=== PATIENT | female | born 1945 | race Caucasian/White ===

== ENCOUNTER 2019-09-03 13:33 | Emergency (ER) | payer MEDICARE, OTHER ==
[~2019-09-03] VITALS: Ht 160 cm; Wt 64.4 kg
[2019-09-03 14:19] LABS: BASOPHILS ABSOLUTE AUTO 0.05 K/mm3 (0.00-0.23); BASOPHILS PERCENT AUTO 1 % (0-2); EOSINOPHILS ABSOLUTE AUTO 0.16 K/mm3 (0.00-0.68); EOSINOPHILS PERCENT AUTO 2 % (0-6); Hematocrit 44.3 % (33.0-51.0); Hemoglobin 14.2 g/dL (11.5-16.0); IMMATURE GRAN ABSOLUTE AUTO 0.02 K/mm3 (0.00-0.10); IMMATURE GRAN PERCENT AUTO 0 % (0-1); LYMPHOCYTES PERCENT AUTO 27 % (21-46); MONOCYTES ABSOLUTE AUTO 0.74 K/mm3 (0.16-1.47); MONOCYTES PERCENT AUTO 9 % (4-13); Mean Corpuscular HGB 29.3 pg (26.0-34.0); Mean Corpuscular HGB Conc 32.1 g/dL (31.5-36.5); Mean Corpuscular Volume 91 fL (80-100); Mean Platelet Volume 9.5 fL (9.1-12.4); NEUTROPHILS ABSOLUTE AUTO 4.85 K/mm3 (1.96-9.15); NEUTROPHILS PERCENT AUTO 61 % (41-73); Platelet Count 292 K/mm3 (150-400); RDW Coefficient Variation 13.1 % (11.7-14.2); RDW Standard Deviation 44.6 fL (35.1-46.3); Red Blood Cell Count 4.85 M/mm3 (3.80-5.20); White Blood Cell Count 8.02 K/mm3 (4.00-11.30)
[2019-09-03 14:38] LABS: Bilirubin, Total 0.4 mg/dL (0.1-1.0); Calcium, Blood 9.6 mg/dL (8.5-10.1); Creatinine, Blood 1.09 mg/dL (0.40-1.00); Potassium, Blood 4.4 mmol/L (3.5-5.5)
[2019-09-03] MEDS ORDERED: Buspirone HCl7.5 MG PO (14:44)
[2019-09-03] MEDS ORDERED: Lisinopril2.5 MG (14:44)
[2019-09-03] MEDS ORDERED: TRAZ50 (14:44)
[2019-09-03] MEDS ORDERED: Paxil20 MG PO (14:45)
[2019-09-03] MEDS ORDERED: LORATADINE10 M1 PO (14:45)
[2019-09-03] MEDS ORDERED: AMLODIPINE BESY10 MG PO (14:45)
[2019-09-03] MEDS ORDERED: ATORVASTATIN CA40 M1 PO (14:45)
== END 2019-09-03 16:35 | disposition home or self-care (01) ==
LOC: ER 13:33
PROVIDERS: Physician Assistant
DX: F41.9 Anxiety disorder, unspecified (principal); R07.9 Chest pain, unspecified; R51 Headache; R20.2 Paresthesia of skin; Z88.6 Allergy status to analgesic agent; Z91.030 Bee allergy status
CPT/HCPCS: 36415; 70450; 80053; 84484; 85025; 93005; 93010; J1885; J2060; J2405

== ENCOUNTER 2019-11-21 11:43 | Emergency (ER) | payer MEDICARE, OTHER ==
[~2019-11-21] VITALS: Ht 167.6 cm; Wt 67.6 kg
[~2019-11-21 11:43] MED LIST: AMLODIPINE BESY10 MG PO; ATORVASTATIN CA40 M1 PO; Buspirone HCl7.5 MG PO; LORATADINE10 M1 PO; Lisinopril2.5 MG; Paxil20 MG PO; TRAZ50
[2019-11-21] MEDS ORDERED: AMLO10 PO (12:32)
[2019-11-21] MEDS ORDERED: C Complex1000 MG PO (12:32)
[2019-11-21] MEDS ORDERED: Calcium 600 MG1 EACH PO (12:33)
[2019-11-21] MEDS ORDERED: ATOR20 PO (12:33)
[2019-11-21] MEDS ORDERED: VITAMIN D350 MC1 PO (12:34)
[2019-11-21] MEDS ORDERED: CENTRUM SILVER1 EAC2 PO (12:34)
[2019-11-21] MEDS ORDERED: LISI20 PO (12:34)
[2019-11-21] MEDS ORDERED: Loratadine10 MG PO (12:35)
[2019-11-21] MEDS ORDERED: TRAZ50 PO (12:35)
[2019-11-21] MEDS ORDERED: OMEP20ER PO (12:35)
[2019-11-21] MEDS ORDERED: MECL25 PO (12:35)
[2019-11-21] MEDS ORDERED: Norco 5-325 Ta1 EACH PO (13:01)
== END 2019-11-21 13:33 | disposition home or self-care (01) ==
LOC: ER 11:43
DX: S63.501A Unspecified sprain of right wrist, initial encounter (principal); S63.91XA Sprain of unspecified part of right wrist and hand, initial encounter; I10 Essential (primary) hypertension; F32.9 Major depressive disorder, single episode, unspecified; Z91.030 Bee allergy status; Z88.6 Allergy status to analgesic agent; Z79.899 Other long term (current) drug therapy; W18.30XA Fall on same level, unspecified, initial encounter
CPT/HCPCS: 73110; 73120; 99283-25; A9270-GY

== ENCOUNTER → 2020-02-16 | Outpatient (CLI) | payer MEDICARE, OTHER ==
[~2020-02-16] MED LIST changes: +AMLO10 PO; +ATOR20 PO; +C Complex1000 MG PO; +CENTRUM SILVER1 EAC2 PO; +CITA20 PO; +Calcium 600 MG1 EACH PO; +LISI20 PO; +Loratadine10 MG PO; +MECL25 PO; +Norco 5-325 Ta1 EACH PO; +OMEP20ER PO; +PARO20 PO; +TRAZ50 PO; +VITAMIN D350 MC1 PO
== END ==
LOC: LAB SHORT 12:31 → PLD 12:31
DX: B35.1 Tinea unguium (principal)
CPT/HCPCS: 88305; 88312

== ENCOUNTER 2020-03-14 09:47 | Day surgery (SDC) | payer MEDICARE, OTHER ==
[~2020-03-14] VITALS: Ht 160 cm; Wt 65.0 kg
[~2020-03-14 09:47] MED LIST changes: +TRAM50 PO; +TRAZ100 PO
--- NOTE | 2020-03-14 16:22 | NUR ---
1620 PATIENT UP TO THE RESTROOM. ONLY WALKED 5 FEET WITH MUCH ENCOURAGEMENT BY CAREGIVER AND STAFF. C/O PAIN TO THE RIGHT FOOT. STATES "THE MEDICATIONS YOU GAVE ME EARLIER DID NOT HELP. MY PAIN IS STILL THERE." EXPLAINED TO PATIENT THAT THE LIDOCAINE HAS WORN OFF THE INSERTION SITE AND THAT IT WILL BE TENDER AND SORE. THE RENEWED BOLLD FLOW TO THE RIGHT LOWER LEG WILL HELP WITH THE WALKING PAIN. REMINDED THE PATIENT OF THE WALKING PROGRAM HER AND DR. DUPONT DISCUSSED AND THAT IT WILL BE WORK ON HER PART AND SHE MAY EXPERIENCE SOME PAIN, BUT THE MORE SHE WALKS THE BETTER SHE WILL FEEL. CAREGIVER GAVE ENCOURAGMENT ALSO AND WE CONGRAGULATED HER ON PROGRESS TODAY.
--- NOTE | 2020-03-14 16:50 | NUR ---
1650 PATIENT DISCHARGED HOME AFTER DRESSING. PIV DISCONTINUED. DISCHARGE INSTRUCTIONS AND ALL BELONGINGS RETAINED BY PATIENT. ESCORTED VIA WHEELCHAIR TO THE CAR. DISCHARGED HOME.
== END 2020-03-14 16:50 | disposition home or self-care (01) ==
LOC: MHTC 09:47
DX: I70.211 Atherosclerosis of native arteries of extremities with intermittent claudication, right leg (principal); I10 Essential (primary) hypertension; E03.9 Hypothyroidism, unspecified; Z86.73 Personal history of transient ischemic attack (TIA), and cerebral infarction without residual deficits; Z88.6 Allergy status to analgesic agent; Z79.899 Other long term (current) drug therapy
CPT/HCPCS: 76937; 99152; 99153; A9270-GY; C1725; C1757; C1760; C1769; C1887; C1894; C2623; J1644; J2250; J3010; J7030; J7040; J7050; Q9967

== ENCOUNTER 2020-03-20 22:21 | Emergency (ER) | payer MEDICARE, OTHER ==
[~2020-03-20] VITALS: Ht 165.1 cm; Wt 65.8 kg
[2020-03-20 22:56] LABS: BASOPHILS ABSOLUTE AUTO 0.05 K/mm3 (0.00-0.23); BASOPHILS PERCENT AUTO 1 % (0-2); EOSINOPHILS ABSOLUTE AUTO 0.15 K/mm3 (0.00-0.68); EOSINOPHILS PERCENT AUTO 2 % (0-6); Hematocrit 39.5 % (33.0-51.0); Hemoglobin 12.6 g/dL (11.5-16.0); IMMATURE GRAN ABSOLUTE AUTO 0.02 K/mm3 (0.00-0.10); IMMATURE GRAN PERCENT AUTO 0 % (0-1); LYMPHOCYTES ABSOLUTE AUTO 3.09 K/mm3 (0.84-5.20); LYMPHOCYTES PERCENT AUTO 31 % (21-46); MONOCYTES ABSOLUTE AUTO 0.86 K/mm3 (0.16-1.47); MONOCYTES PERCENT AUTO 9 % (4-13); Mean Corpuscular HGB 29.8 pg (26.0-34.0); Mean Corpuscular HGB Conc 31.9 g/dL (31.5-36.5); Mean Corpuscular Volume 93 fL (80-100); Mean Platelet Volume 9.5 fL (9.1-12.4); NEUTROPHILS PERCENT AUTO 58 % (41-73); Platelet Count 307 K/mm3 (150-400); RDW Coefficient Variation 13.9 % (11.7-14.2); RDW Standard Deviation 47.8 fL (35.1-46.3); Red Blood Cell Count 4.23 M/mm3 (3.80-5.20); White Blood Cell Count 9.87 K/mm3 (4.00-11.30)
[2020-03-20] MEDS ORDERED: AMLODIPINE BESY10 MG PO (23:04)
[2020-03-20] MEDS ORDERED: ZESTRIL40 M2 PO (23:07)
[2020-03-20] MEDS ORDERED: Buspirone HCl7.5 MG PO (23:09)
[2020-03-20] MEDS ORDERED: OMEP20ER PO (23:10)
[2020-03-20] MEDS ORDERED: Loratadine10 MG PO (23:10)
[2020-03-20] MEDS ORDERED: CYCL10 PO (23:10)
[2020-03-20 23:14] LABS: Albumin, Blood 4.1 g/dL (3.4-5.0); Bilirubin, Total 0.5 mg/dL (0.1-1.0); Bun/Creatinine Ratio 22.3 (12.0-20.0); Creatinine, Blood 1.12 mg/dL (0.40-1.00); Potassium, Blood 3.9 mmol/L (3.5-5.5); Total Protein, Blood 8.1 g/dL (6.4-8.2)
[2020-03-20 23:20] LABS: International Normalized Ratio 0.91; Prothrombin Time Results 9.8 Sec (9.7-11.5)
== END 2020-03-21 00:32 | disposition home or self-care (01) ==
LOC: ER 22:21
PROVIDERS: Emergency Medicine
DX: G93.40 Encephalopathy, unspecified (principal); F10.129 Alcohol abuse with intoxication, unspecified; Y90.6 Blood alcohol level of 120-199 mg/100 ml; Z88.6 Allergy status to analgesic agent; Z91.030 Bee allergy status; Z79.899 Other long term (current) drug therapy; I10 Essential (primary) hypertension; Z86.73 Personal history of transient ischemic attack (TIA), and cerebral infarction without residual deficits; F32.9 Major depressive disorder, single episode, unspecified; G62.9 Polyneuropathy, unspecified; I25.2 Old myocardial infarction
CPT/HCPCS: 51702; 70450; 70496; 70498; 80053; 85025; 85610; 93005; 93010; 99285-25; G0480; Q9967

== ENCOUNTER 2020-08-15 09:54 | Emergency (ER) | payer MEDICARE, OTHER ==
[~2020-08-15] VITALS: Ht 160 cm; Wt 61.7 kg
[~2020-08-15 09:54] MED LIST changes: +CYCL10 PO; +ZESTRIL40 M2 PO
== END 2020-08-15 12:09 | disposition home or self-care (01) ==
LOC: ER 09:54
DX: S09.90XA Unspecified injury of head, initial encounter (principal); I10 Essential (primary) hypertension; I25.2 Old myocardial infarction; Z79.899 Other long term (current) drug therapy; Z91.030 Bee allergy status; Z86.73 Personal history of transient ischemic attack (TIA), and cerebral infarction without residual deficits; Z79.82 Long term (current) use of aspirin; Z91.013 Allergy to seafood; W22.8XXA Striking against or struck by other objects, initial encounter; Y93.89 Activity, other specified
CPT/HCPCS: 70450; 99284-25

== ENCOUNTER 2020-11-22 16:49 | Emergency (ER) | payer MEDICARE, OTHER ==
[~2020-11-22] VITALS: Ht 160 cm; Wt 54.9 kg
== END 2020-11-22 18:30 | disposition home or self-care (01) ==
LOC: ER 16:49
DX: S00.12XA Contusion of left eyelid and periocular area, initial encounter (principal); I25.2 Old myocardial infarction; I10 Essential (primary) hypertension; Z86.73 Personal history of transient ischemic attack (TIA), and cerebral infarction without residual deficits; Z91.030 Bee allergy status; Z88.6 Allergy status to analgesic agent; Z79.899 Other long term (current) drug therapy; W01.198A Fall on same level from slipping, tripping and stumbling with subsequent striking against other object, initial encounter
CPT/HCPCS: 70450; 99283-25

== ENCOUNTER 2021-02-09 08:13 | Emergency (ER) | payer MEDICARE, OTHER ==
[~2021-02-09] VITALS: Ht 165.1 cm; Wt 54.9 kg
[2021-02-09] MEDS ORDERED: GABA300 PO (08:49)
[2021-02-09] MEDS ORDERED: CLOP75 PO (08:49)
[2021-02-09] MEDS ORDERED: OMEP20ER PO (08:49)
[2021-02-09] MEDS ORDERED: PARO20 PO (08:49)
[2021-02-09] MEDS ORDERED: CLON.1 PO (08:49)
[2021-02-09] MEDS ORDERED: MYRBETRIQ50 MG PO (08:49)
[2021-02-09] MEDS ORDERED: ATOR40TA PO (08:50)
[2021-02-09] MEDS ORDERED: AMLO10 PO (08:50)
[2021-02-09] MEDS ORDERED: ALLOPURINOL100 MG PO (08:50)
[2021-02-09] MEDS ORDERED: LISI20 PO (08:50)
[2021-02-09 09:06] LABS: BASOPHILS ABSOLUTE AUTO 0.06 K/mm3 (0.00-0.23); BASOPHILS PERCENT AUTO 1 % (0-2); EOSINOPHILS ABSOLUTE AUTO 0.02 K/mm3 (0.00-0.68); EOSINOPHILS PERCENT AUTO 0 % (0-6); Hematocrit 42.2 % (33.0-51.0); Hemoglobin 13.7 g/dL (11.5-16.0); IMMATURE GRAN ABSOLUTE AUTO 0.02 K/mm3 (0.00-0.10); IMMATURE GRAN PERCENT AUTO 0 % (0-1); LYMPHOCYTES PERCENT AUTO 20 % (21-46); MONOCYTES ABSOLUTE AUTO 0.54 K/mm3 (0.16-1.47); MONOCYTES PERCENT AUTO 8 % (4-13); Mean Corpuscular HGB 29.4 pg (26.0-34.0); Mean Corpuscular HGB Conc 32.5 g/dL (31.5-36.5); Mean Corpuscular Volume 91 fL (80-100); Mean Platelet Volume 9.9 fL (9.1-12.4); NEUTROPHILS ABSOLUTE AUTO 4.95 K/mm3 (1.96-9.15); NEUTROPHILS PERCENT AUTO 71 % (41-73); Platelet Count 265 K/mm3 (150-400); RDW Coefficient Variation 13.6 % (11.7-14.2); RDW Standard Deviation 45.4 fL (35.1-46.3); Red Blood Cell Count 4.66 M/mm3 (3.80-5.20); White Blood Cell Count 6.99 K/mm3 (4.00-11.30)
[2021-02-09 09:22] LABS: Alanine Aminotransfer (ALT/SGP 27 U/L (12-78); Albumin, Blood 4.1 g/dL (3.4-5.0); Albumin/Globulin Ratio 1.2 (0.8-1.8); Alk Phos 53 U/L (50-136); Anion Gap 6 mmol/L (6-16); Aspartate Aminotrans (AST/SGOT 26 U/L (12-37); Bilirubin, Total 0.6 mg/dL (0.1-1.0); Blood Urea Nitrogen 25 mg/dL (8-24); Bun/Creatinine Ratio 26.9 (12.0-20.0); CO2, Blood 25 mmol/L (21-32); Calcium, Blood 9.3 mg/dL (8.5-10.1); Chloride, Blood 111 mmol/L (98-108); Creatinine, Blood 0.93 mg/dL (0.40-1.00); Globulin, Blood 3.4 g/dL (2.2-4.0); Glomerular Filtration Rate 58 (60-); Glucose, Blood 104 mg/dL (70-99); Potassium, Blood 3.7 mmol/L (3.5-5.5); Sodium, Blood 142 mmol/L (136-145); Total Protein, Blood 7.5 g/dL (6.4-8.2); Troponin I <0.015 ng/mL (0.000-0.040)
[2021-02-09 10:51] LABS: Source, Urine Clean Catch
[2021-02-09 10:55] LABS: Appearance, Urine Clear (Clear); Bilirubin, Urine Neg (Neg); Blood, Urine 1+ (Neg); Color, Urine Yellow (P-Yellow); Glucose Qualitative, Urine Neg (Neg); Ketones, Urine Neg (Neg); Leukocyte Esterase, Urine 1+ (Neg); Nitrite, Urine Neg (Neg); Protein, Urine Neg (Neg); Urobilinogen, Urine NORM (Normal)
[2021-02-09 11:22] LABS: Bacteria Few /hpf; Red Blood Cells, Urine 0-2 /hpf (0-2); Squamous Epithelial Cells Few /hpf (Few)
== END 2021-02-09 13:37 | disposition home or self-care (01) ==
LOC: ER 08:13
PROVIDERS: Physician Assistant
DX: F41.9 Anxiety disorder, unspecified (principal); I10 Essential (primary) hypertension; Z88.6 Allergy status to analgesic agent; Z88.0 Allergy status to penicillin; Z79.02 Long term (current) use of antithrombotics/antiplatelets; Z79.899 Other long term (current) drug therapy; Z91.030 Bee allergy status
CPT/HCPCS: 36415; 80053; 81001; 84484; 85025; 87086; 93005; 93010; 99284-25